=== PATIENT | female | born 1970 | race Caucasian/White ===

== ENCOUNTER 2019-09-08 15:59 | Emergency (ER) | payer OTHER ==
--- NOTE | 2019-09-08 16:10 | EDM.PDOC ---
<Bridget Haley - Last Filed: 09/08/19 18:03> ED HPI GENERAL MEDICAL PROBLEM - General Chief Complaint: Chest Pain Stated Complaint: CHEST PAIN Time Seen by Provider: 09/08/19 16:10 Source of Information: Reports: Patient History Limitations: Reports: No Limitations - History of Present Illness INITIAL COMMENTS - FREE TEXT/NARRATIVE: pt arrived with severe pressure in the chest. She had a very emotional day today. She found her with his girlfriend at their house. She has been having some pressure on and off for about 1 week. Onset: Today Duration: Hour(s): Location: Reports: Chest Associated Symptoms: Reports: Other ( chest pressure. ) Chest Pain Score (Numeric/FACES): 5 - Related Data Allergies Allergy/AdvReac Type Severity Reaction Status Date / Time telithromycin [From Ketek] Allergy Hives Verified 09/08/19 16:28 Home Meds: Home Meds Sertraline [Zoloft] 50 mg PO DAILY 09/08/19 [History] buPROPion HCl [Wellbutrin Xl] 150 mg PO DAILY 09/08/19 [History] valACYclovir HCl [Valacyclovir] 1,000 mg PO ASDIRECTED PRN 09/08/19 [History] ED ROS GENERAL - Review of Systems Review Of Systems: See Below Constitutional: Reports: No Symptoms HEENT: Reports: No Symptoms Respiratory: Reports: Shortness of Breath Cardiovascular: Reports: Chest Pain Endocrine: Reports: No Symptoms GI/Abdominal: Reports: No Symptoms : Reports: No Symptoms Musculoskeletal: Reports: No Symptoms Skin: Reports: No Symptoms Neurological: Reports: No Symptoms ED EXAM, GENERAL - Physical Exam Exam: See Below Free Text/Narrative:: pt arrived with chest pressure. She was slightly sweaty. Pt had a very emotional day. Exam Limited By: No Limitations General Appearance: Alert, Anxious, Mild Distress Ears: Normal TMs Nose: Normal Inspection Throat/Mouth: Normal Inspection Head: Atraumatic Neck: Normal Inspection Respiratory/Chest: No Respiratory Distress Cardiovascular: Other ( chest pressure. ) GI/Abdominal: Soft, Non-Tender (Female) Exam: Deferred Rectal (Female) Exam: Deferred Back Exam: Normal Inspection Extremities: Normal Inspection Neurological: Alert, Oriented, Normal Cognition Psychiatric: Anxious Course - Vital Signs Last Recorded V/S: Last Vital Signs Temp 97.9 F 09/08/19 16:06 Pulse 95 09/08/19 17:53 Resp 15 09/08/19 17:53 BP 136/83 09/08/19 17:53 Pulse Ox 96 09/08/19 17:53 - Orders/Labs/Meds Orders: Active Orders 24 hr Category Date Time Status EKG Documentation Completion [RC] ASDIRECTED Care 09/08/19 16:11 Active EKG 12 Lead [EK] Routine Ther 09/08/19 16:11 Ordered Labs: Laboratory Tests 09/08/19 09/08/19 09/08/19 Range/Units 16:19 16:19 17:25 WBC 9.2 (4.5-11.0) K/uL RBC 4.56 (3.30-5.50) M/uL Hgb 13.3 (12.0-15.0) g/dL Hct 40.4 (36.0-48.0) % MCV 89 (80-98) fL MCH 29 (27-31) pg MCHC 33 (32-36) % Plt Count 324 (150-400) K/uL Neut % (Auto) 85 H (36-66) % Lymph % (Auto) 9 L (24-44) % [place] % (Auto) 6 (2-6) % Eos % (Auto) 1 L (2-4) % Baso % (Auto) 0 (0-1) % Sodium 142 (140-148) mmol/L Potassium 3.5 L (3.6-5.2) mmol/L Chloride 104 (100-108) mmol/L Carbon Dioxide 25 (21-32) mmol/L Anion Gap 16.5 H (5.0-14.0) mmol/L BUN 11 (7-18) mg/dL Creatinine 1.0 (0.6-1.0) mg/dL Est Cr Clr Drug Dosing 60.14 mL/min Estimated GFR (MDRD) 59 L (>60) Glucose 117 H (74-106) mg/dL Calcium 9.0 (8.5-10.1) mg/dL Total Bilirubin 0.4 (0.2-1.0) mg/dL AST 14 L (15-37) U/L ALT 26 (12-78) U/L Alkaline Phosphatase 87 (46-116) U/L Troponin I < 0.017 (0.000-0.056) ng/mL Total Protein 7.1 (6.4-8.2) g/dL Albumin 4.2 (3.4-5.0) g/dL Globulin 2.9 (2.3-3.5) g/dL Albumin/Globulin Ratio 1.4 (1.2-2.2) Urine Color Yellow (YELLOW) Urine Appearance Clear (CLEAR) Urine pH 6.0 (5.0-8.0) Ur Specific [place] 1.010 (1.008-1.030) Urine Protein Negative (NEGATIVE) mg/dL Urine Glucose (UA) Negative (NEGATIVE) mg/dL Urine Ketones Negative (NEGATIVE) mg/dL Urine Occult Blood Negative (NEGATIVE) Urine Nitrite Negative (NEGATIVE) Urine Bilirubin Negative (NEGATIVE) Urine Urobilinogen 0.2 (0.2-1.0) EU/dL Ur Leukocyte Esterase Negative (NEGATIVE) Urine RBC Not seen (0-5) Urine WBC 0-5 (0-5) Ur Epithelial Cells Not seen Amorphous Sediment Not seen Urine Bacteria Not seen Urine Mucus Not seen Meds: Medications Discontinued Medications Generic Name Dose Route Start Last Admin Trade Name Freq PRN Reason Stop Dose Admin Aspirin 324 mg 09/08/19 16:26 09/08/19 16:37 Aspirin PO 09/08/19 16:27 324 mg ONETIME ONE Administration Sodium Chloride 1,000 mls @ 999 mls/hr 09/08/19 17:15 09/08/19 17:39 Normal Saline IV 999 mls/hr ASDIRECTED SELENE Administration Ketorolac Tromethamine 30 mg 09/08/19 18:01 09/08/19 18:09 Toradol IVPUSH 09/08/19 18:02 30 mg ONETIME ONE Administration Lorazepam 0.5 mg 09/08/19 16:27 09/08/19 16:37 Ativan PO 09/08/19 16:28 0.5 mg ONETIME ONE Administration Lorazepam 0.5 mg 09/08/19 17:47 09/08/19 17:56 Ativan PO 09/08/19 17:48 0.5 mg ONETIME ONE Administration - Re-Assessments/Exams Free Text/Narrative Re-Assessment/Exam: 09/08/19 17:17 pt was found to have normal labs. She is feeling better and the pressure is better. 09/08/19 17:40 pt was given asa and ativan. Departure - Departure Disposition: Home, Self-Care 01 Condition: Fair Clinical Impression: Anxiety Instructions: Living With Anxiety Referrals: PCP,None [Primary Care Provider] - Forms: ED Department Discharge Care Plan Goals: continue same meds follow with regular dr, ativan 1 mg 1/2 tab q6h as needed for marked anxiety. Sepsis Event Note - Evaluation Sepsis Screening Result: No Definite Risk - Focused Exam Vital Signs: Vital Signs Temp Pulse Resp BP Pulse Ox 09/08/19 17:53 95 15 136/83 96 09/08/19 17:09 94 19 144/78 H 96 09/08/19 16:36 89 10 L 139/80 99 09/08/19 16:06 97.9 F 114 H 20 156/78 H 96 Date Exam was Performed: 09/08/19 Time Exam was Performed: 18:03 <James Acevedo - Last Filed: 09/08/19 20:01> Course - Re-Assessments/Exams Free Text/Narrative Re-Assessment/Exam: 09/08/19 18:25 Patient continued to feel better, her prescription was changed to an instymed for her Ativan to take 1 pill every 4-6 hours as needed. Departure - Departure Time of Disposition: 18:43 Sepsis Event Note - Focused Exam Date Exam was Performed: 09/08/19 Time Exam was Performed: 20:01
[2019-09-08] MEDS ORDERED: Aspirin 81 MG Tab.Chew PO ONE (16:26)
[2019-09-08] MEDS ORDERED: LORazepam 0.5 MG Tab PO ONE ×2 (16:27→17:47)
[2019-09-08] MEDS ORDERED: Sodium Chloride 0.9% 1,000 ML IV SCH (17:15)
[2019-09-08] MEDS ORDERED: Ketorolac 30 MG/ML SDV IVPUSH ONE (18:01)
== END 2019-09-08 18:51 | disposition home or self-care (01) ==
LOC: JP.ED 15:59
DX: F41.9 Anxiety disorder, unspecified (principal); Z88.1 Allergy status to other antibiotic agents; Z79.899 Other long term (current) drug therapy
CPT/HCPCS: 36415; 80053; 81001; 84484; 85025; 93005; 96361; 96374; 99285; A9270; J1885; J7030